=== PATIENT | female | born 1995 | race Caucasian/White ===

== ENCOUNTER 2018-02-12 09:01 | Emergency (ER) | payer OTHER | END 2018-02-12 10:20 | disposition home or self-care (01) | LOC: FTE 09:01 → E/R 10:20 | DX: H66.92 Otitis media, unspecified, left ear (principal) | CPT/HCPCS: 99283; Z7502 ==

== ENCOUNTER 2018-04-20 20:29 | Emergency (ER) | payer OTHER ==
[2018-04-20] MEDS: KETOROLAC 60 MG INJ IM (21:03)
== END 2018-04-20 22:35 | disposition home or self-care (01) ==
LOC: FTE 20:29
DX: M54.9 Dorsalgia, unspecified (principal)
CPT/HCPCS: 81025; 96372; 99284-25